=== PATIENT | male | born 1990 ===

== ENCOUNTER 2017-06-03 07:18 | Day surgery (SDC) | payer BC ==
[2017-05-23 09:27] VITALS: BMI 22.9
[2017-06-03] MEDS ORDERED: Lactated Ringer's 1,000 ML IV ONE (09:10)
[2017-06-03] MEDS ORDERED: Midazolam 2 MG/2 ML VIAL ONE (09:24)
[2017-06-03] MEDS ORDERED: Propofol 10 mg/ml Inj (20 ML) ONE (09:24)
[2017-06-03] MEDS ORDERED: Bupivacaine HCl 0.5% PF (10 ml) Inj ONE ×2 (09:36)
[2017-06-03] MEDS ORDERED: Bacitracin 500 Units/gm Oint Foilpak UD ONE (09:36)
[2017-06-03] MEDS ORDERED: ceFAZolin IV 1 gm in Dextrose 1 GM/50 ML BAG IVPB ONE (09:37)
[2017-06-03] MEDS ORDERED: Bacitracin Ointment 30 GM TUBE ONE (10:03)
[2017-06-03] MEDS ORDERED: HYDROmorphone 0.5 mg/0.5 ml ISec IVP PRN (10:36)
[2017-06-03 12:18] VITALS: BP 117/70; PULSE 70; RESP 18; TEMP 97; O2SAT 100
--- NOTE | 2017-06-03 19:27 | OP ---
PROCEDURE DATE: 06/03/2017 PREOPERATIVE DIAGNOSIS: Phimosis. POSTOPERATIVE DIAGNOSIS: Phimosis. PROCEDURE: Circumcision. SURGEON: Chintan Mandujano MD. TYPE OF ANESTHESIA: Regional penile block anesthesia plus laryngeal mask anesthesia. ANESTHESIA ADMINISTERED BY: Dr. Ghotra and Ellie nurse lead principal technical architect. DESCRIPTION OF PROCEDURE: The patient was placed on the operating table in supine position. Prepped and draped in the usual sterile fashion with Betadine solution under laryngeal mask anesthesia. Approximately 10 mL of 2% Carbocaine plus 0.5% Marcaine in a 50:50 mixture was injected subcutaneously and circumferentially around the base of the penis and intracorporeally for a regional pudendal block anesthetic. Next, the foreskin was grasped with curved clamps, retracted back over the glans penis and all adhesions with smegma were released and removed prior to start of the circumcision. Additional antiseptic solution was applied to the skin. The foreskin was then retracted back over the glans penis and grasped with 2 curved clamps and using the dorsal slit technique, a dorsal slit was made within 3 mm of the mucosa of the glans penis. This was followed by a ventral slit up to the area of the frenulum. The excess foreskin was then excised circumferentially and retracted. The remaining foreskin was retracted back over the glans penis and shaft of the penis and hemostasis was achieved using the Bovie cautery sparingly which was set at 30 cowan the coag throughout the procedure. With hemostasis completely achieved, 2 interrupted sutures were placed at the 12 o'clock and 6 o'clock positions, followed by a continuous suture of 3-0 chronic between the 6 and 12 o'clock positions bilaterally. Additional interrupted sutures of 3-0 chromic were applied to the area of the frenulum. At the end of the procedure, hemostasis was completely achieved. Bacitracin ointment was applied to the coronal suture line, followed by application of a Vaseline gauze dressing, followed by a sterile gauze dressing, which was all held in place using 2 inch Coban. The patient tolerated the procedure well with less than 10 mL of blood loss and was brought to the recovery area in satisfactory condition. The patient was given Ancef 1 gm prior to the start of the procedure. The patient will now be discharged home on Tylenol No. 3 for pain control. The patient will be seen in office followup in about 1 month if the wound remains clean without any problems. Chintan Mandujano MD CC: Chintan Mandujano MD
== END 2017-06-03 12:30 | disposition home or self-care (01) ==
LOC: C.SDS 07:18
PROVIDERS: ATTEND Urology
DX: N47.1 Phimosis (principal)
CPT/HCPCS: 54150; 88304; J1100; J2001; J2250; J2405; J2704; J3010; J7120